=== PATIENT | female | born 1950 | race Caucasian/White ===

== ENCOUNTER 2018-07-07 10:20 | Emergency (ER) | payer MEDICARE ==
[2018-07-07 10:51] VITALS: BP 120/64
[2018-07-07] MEDS ORDERED: NAPROXEN 250 MG TABLET PO STA (12:26)
--- NOTE | 2018-07-07 12:28 | ED Physician Documentation ---
History of Present Illness - Stated complaint Stated Complaint: FLU LIKE SX - Chief complaint Chief Complaint: General - Additonal information Additional information: 68-year-old female presents the emergency department with nasal congestion, cough, body aches and general fatigue. When I entered the room and engaged with the patient she told me that she did not want to answer questions and that everything was in the computer. The patient does report feeling somewhat better today. No other associated symptoms Review of Systems Constitutional: reports: Fever, Chills, Myalgias, Fatigue Eyes: denies: Discharge Ears: denies: Ear pain Nose: reports: Congestion Throat: reports: Sore throat Cardiac: denies: Chest pain / pressure Respiratory: reports: Cough GI: denies: Abdominal Pain : denies: Dysuria Musculoskeletal: denies: Neck pain Immunocompromised: denies: Chemotherapy PD ED PE NORMAL - General General: Alert and oriented X 3, No acute distress - HEENT HEENT: Atraumatic, PERRL, EOMI, Ears normal - Neck Neck: Supple, no meningeal sign - Cardiac Cardiac: RRR, Strong equal pulses - Respiratory Respiratory: No respiratory distress, Clear bilaterally - Derm Derm: Normal color - Extremities Extremities: No deformity, No edema - Neuro Neuro: Alert and oriented X 3, Normal speech - Psych Psych: Normal affect Results - Vitals Vitals: Vital Signs - 24 hr 07/07/18 10:43 Temperature 36.6 C Heart Rate 76 Respiratory 20 Rate Blood Pressure 120/64 O2 Saturation 96 Oxygen O2 Source Room air - Labs Labs: Laboratory Tests 07/07/18 11:39 Influenza A (Rapid) Negative Influenza B (Rapid) Negative PD MEDICAL DECISION MAKING - ED course ED course: The patient was flu negative, I offered an x-ray to rule out the possibility. The patient told me she does not want to wait and wants to go home. I re commended returning back to the emergency department any point for reevaluation. Otherwise the patient appears appropriate for outpatient management Departure - Departure Disposition: 01 Home, Self Care Condition: Good Instructions: ED Flu Follow-Up: Rishabh Dozier DO [Emergency Provider] - Within 1 week Comments: Please return to the emergency department for worsening symptoms or any concerns
== END 2018-07-07 12:32 | disposition home or self-care (01) ==
LOC: ED 10:20
DX: J11.1 Influenza due to unidentified influenza virus with other respiratory manifestations (principal)
CPT/HCPCS: 87275; 87276; 99282; 99283

== ENCOUNTER 2023-01-25 08:00 | Outpatient (CLI) | payer MEDICARE ==
--- NOTE | 2023-01-25 17:48 | XRAY Report ---
PROCEDURE: Hand 3 View RT INDICATIONS: LOCALIZED SWELLING OF RIGHT THUMB TECHNIQUE: 3 views of the hand(s) acquired. COMPARISON: None. FINDINGS: Bones: No acute fracture or dislocation identified. Severe first CMC joint degenerative changes. Mil d STT joint degenerative changes and scattered IP joint degenerative changes also present. Soft tissues: No suspicious soft tissue calcifications IMPRESSION: No acute bony abnormality. If pain persists with conservative management, consider repeat radiographs in 10-14 days or cross-sectional imaging. 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 Reviewed by: Jake Rivas MD on 01/25/2023 5:47 PM PDT Approved by: Jake Rivas MD on 01/25/2023 5:47 PM PDT Station ID: [id number]
== END 2023-01-25 23:59 | disposition home or self-care (01) ==
LOC: DI.S 08:00
PROVIDERS: ATTEND Physician Assistant
DX: M19.041 Primary osteoarthritis, right hand (principal); M18.11 Unilateral primary osteoarthritis of first carpometacarpal joint, right hand